=== PATIENT | female | born 1970 | race African-American/Black ===

== ENCOUNTER → 2016-10-17 | Day surgery (SDC) | payer MEDICARE ==
[~2016-10-17] MED LIST: ALBUTEROL20 ml INH; BREO ELLIPTA 11 EACH INH; GABAPENTIN300 MG PO; LATUDA60 MG PO; NAPROSYN-EC500 M1 PO; PROZAC PO; SINGULAIR PO; TOPAMAX50 MG PO; TRAZODONE HCL100 MG PO; VITAMIN D2000 UNIT PO
--- NOTE | ~2016-10-17 | HP ---
Unit #: [id number] #: [id number] Patient: OSWALD JOHN [id number] [address] [address] [id number] O MR#: [id number] NAME: OSWALD JOHN ROOM: Age: Sex: F Admission Date: 10/17/2016 : 1970 Attending Physician: Monty Rivas M.D. Primary Care Physician: Samina Salvador A.P.R.N. HISTORY AND PHYSICAL CHIEF COMPLAINT Right great toe pain. HISTORY OF PRESENT ILLNESS The patient is a 45-year-old female with bilateral right great toe pain and stiffness, right worse than left. The pain is worse with ambulation. She has failed to respond to modification of activities and stiff-soled shoes. Radiographs show end stage arthritis. She is, therefore, to undergo fusion of her symptomatic right first metatarsophalangeal joint. PAST MEDICAL HISTORY Remarkable for: 1. Bipolar disorder. 2. Breast cancer. 3. Osteoarthritis in both knees. 4. Plantar fasciitis. 5. Asthma. 6. Allergic rhinitis. HOME MEDICATIONS 1. Abilify. 2. Albuterol. 3. Hydrocodone. 4. Naproxen. 5. Topamax. ALLERGIES None. PAST SURGICAL HISTORY 1. Mastectomy. 2. Bladder surgery. 3. Knee surgery. 4. Uterine surgery. SOCIAL HISTORY The patient drinks socially. She doesn't smoke. FAMILY HISTORY Coronary artery disease, hypertension, diabetes, cancer. SOCIAL HISTORY The patient is a nonsmoker, nondrinker. Unit #: [id number] #: [id number] Patient: OSWALD JOHN PHYSICAL EXAMINATION GENERAL: This is a well developed, well nourished female in no acute distress. PHARYNX: Clear. NECK: Supple without masses. HEART: Regular sinus rhythm without murmurs or gallops. LUNGS: Clear. ABDOMEN: Soft and nontender. Examination of the right foot shows a normal neutral heel. She has mild pes planus. Ankle and subtalar motion are normal. There is pain and swelling over her first metatarsophalangeal joint, first MTP joint. Dorsiflexion is 40, plantar flexion is 10 with discomfort and mid range of motion. Pulses are intact. Motor exam is normal, sensation is normal. Standing x-rays of the right foot show joint space narrowing of the right first MTP joint. IMPRESSION/ADMITTING DIAGNOSES Symptomatic right first metatarsophalangeal joint arthritis. PLAN The patient has failed conservative care. She is, therefore, admitted for right first metatarsophalangeal joint arthrodesis. This procedure was described along with the risks of bleeding, infection, nerve damage, need for further surgery in the future, nonunion, malunion, need for possible hardware removal in the future, prolonged recovery time, deep venous thrombosis, pulmonary embolism, anesthetic complications. She understands the above risks and agrees to proceed. Dictated by Shailesh Corrigan/fritz TD: 10/16/2016 18:46 JOB #: [id number] HISTORY AND PHYSICAL Page 1 of 1 X Shirley Rivas MD X HISTORY AND PHYSICAL
--- NOTE | ~2016-10-17 | OR ---
Unit #: [id number] #: [id number] Patient: OSWALD JOHN [id number] [address] [place], [place] [address] [id number] O MR#: [id number] NAME: OSWALD JOHN ROOM: Date of Procedure: 09/30/2016 Admission Date: 10/17/2016 Surgeon: Monty Rivas M.D. : 1970 Attending Physician: Monty Rivas M.D. Primary Care Physician: Samina Salvador A.P.R.N. OPERATIVE REPORT PREOPERATIVE DIAGNOSIS Right first metatarsophalangeal joint arthritis. POSTOPERATIVE DIAGNOSIS Right first metatarsophalangeal joint arthritis. PROCEDURE PERFORMED Right first metatarsophalangeal joint fusion (49101). ASSISTANTS MD Dennis and PAXTON Haddad. ANESTHESIA Popliteal saphenous block and general. INDICATIONS FOR SURGERY The patient is a 46-year-old female with end-stage right first MTP joint arthritis, unresponsive to conservative care. She is, therefore, to undergo fusion of the joint. DESCRIPTION OF PROCEDURE The patient underwent right popliteal saphenous block in the anesthesia holding area. She was taken to the operating room, placed in supine position, and general anesthetic was induced. The right foot was identified as the correct operative location during the time-out procedure. The IV antibiotic protocol was followed. The right foot was then prepped and draped in usual sterile fashion. The leg was exsanguinated and the thigh tourniquet inflated to 300 mmHg. A medial longitudinal incision was made over the first MTP joint. The subcutaneous tissue was divided. The joint capsule was opened longitudinally, reflected off the first metatarsal head. The joint was exposed with subperiosteal dissection. The microsagittal saw was used to remove the articular cartilage from the first metatarsal head. The subchondral bone was drilled multiple times with a K-wire. The K-wire was then used to make multiple perforations around the periphery of the proximal phalangeal base. These perforations were connected with a small osteotome and the articular cartilaginous surface was lifted away. The attached cancellous bone was removed with the rongeur and packed into the fusion site. The joint was then positioned appropriately and pinned provisionally with a K-wire. Simulated weightbearing showed proper toe position. The OrthoHelix 3.2 mm diameter Mini MaxTorque screw was then placed from proximal medial to distal lateral. Satisfactory fixation was achieved. A Unit #: [id number] #: [id number] Patient: OSWALD JOHN straight first MTP joint OrthoHelix plate was then applied dorsally and pinned into place and fixated with multiple 2.4 and 2.7 mm diameter screws placed from dorsal to plantar in a nonlocking fashion. Excellent fixation was achieved. Intraoperative C-arm fluoroscopy documented satisfactory plate and screw position. Simulated weightbearing again showed proper toe position. Tourniquet was released with a total tourniquet time of 45 minutes. Bleeding was controlled with electrocautery. The joint capsule was closed with 2-0 Vicryl. Subcutaneous tissue was closed with 3-0 Vicryl. The skin was closed with 3-0 nylon horizontal mattress sutures. Xeroform gauze, dressing, sponges, Webril, Malvin wrap, and postoperative shoe were placed. The patient was then transported to the recovery room in stable condition. ESTIMATED BLOOD LOSS Minimal. COMPLICATIONS None. SPECIMENS None. TOURNIQUET TIME 45 minutes. Dictated by.Shailesh Lopez/mil TD: 10/18/2016 00:52 JOB #: [id number] OPERATIVE REPORT Page 1 of 1 X Shirley Rivas MD X PROCEDURE OPERATIVE NOTE
== END | disposition home or self-care (01) ==
LOC: CSUR 08:22
DX: M19.071 Primary osteoarthritis, right ankle and foot (principal); J45.909 Unspecified asthma, uncomplicated; Z87.01 Personal history of pneumonia (recurrent); Z88.6 Allergy status to analgesic agent; Z85.3 Personal history of malignant neoplasm of breast; M17.0 Bilateral primary osteoarthritis of knee; Z79.891 Long term (current) use of opiate analgesic; Z79.899 Other long term (current) drug therapy; Z90.10 Acquired absence of unspecified breast and nipple
CPT/HCPCS: 84703; C1713; J0690; J1170; J2250; J2405; J2795; J3010